=== PATIENT | female | born 1975 | race African-American/Black ===

== ENCOUNTER 2022-11-12 20:33 | Emergency (ER) | payer OTHER ==
[~2022-11-12] VITALS: Ht 167.6 cm; Wt 68.0 kg
[2022-11-12 20:45] VITALS: O2SAT 97
== END 2022-11-12 21:56 | disposition home or self-care (01) ==
LOC: FSED 20:42
DX: I83.91 Asymptomatic varicose veins of right lower extremity (principal); S80.11XA Contusion of right lower leg, initial encounter; X50.1XXA Overexertion from prolonged static or awkward postures, initial encounter; Y92.89 Other specified places as the place of occurrence of the external cause; F41.9 Anxiety disorder, unspecified
CPT/HCPCS: 99282